=== PATIENT | female | born 1950 | race Caucasian/White ===

== ENCOUNTER 2023-12-23 04:57 | Inpatient (IN) ==
--- NOTE | 2023-11-27 12:17 | PAT Medication Instructions ---
Medication Instructions Date of Service November 27, 2023 Home Medications Medication Instructions Recorded gabapentin 300 mg capsule 300 mg PO TID 90 days #270 caps 09/05/23 Wheeled Walker #1 ea 11/06/23 ropinirole 2 mg tablet 4 mg (2 x 2 mg) PO HS #180 tabs 11/19/23 cholecalciferol (vitamin D3) 50 mcg (2,000 unit) tablet 50 mcg PO QAM aspirin 325 mg tablet 325 mg PO QAM lorazepam 1 mg tablet 1 mg PO HS PRN PRN gabapentin 300 mg capsule 300 mg PO TID ropinirole 2 mg tablet 4 mg (2 x 2 mg) PO HS amlodipine 5 mg tablet 5 mg PO BID atorvastatin 40 mg tablet 40 mg PO QPM bupropion HCl 150 mg tablet,12 hr sustained-release 150 mg PO QAM citalopram 10 mg tablet 10 mg PO HS cyanocobalamin (vitamin B-12) 1,000 mcg tablet (Vitamin B-12) 1,000 mcg PO HS lamotrigine 25 mg tablet (Lamictal) 25 mg PO UD magnesium 250 mg tablet 250 mg PO BID methylphenidate HCl 20 mg tablet 20 mg PO BID oxybutynin chloride 15 mg tablet,extended release 24 hr 30 mg PO QAM quetiapine 100 mg tablet 150 mg PO HS ASK your prescriber and surgeon aspirin 325 mg tablet 325 mg PO QAM DO NOT take the morning of surgery cholecalciferol (vitamin D3) 50 mcg (2,000 unit) tablet 50 mcg PO QAM magnesium 250 mg tablet 250 mg PO BID methylphenidate HCl 20 mg tablet 20 mg PO BID oxybutynin chloride 15 mg tablet,extended release 24 hr 30 mg PO QAM Take morning of surgery With a small sip of water, OTHERWISE NOTHING TO EAT OR DRINK AFTER MIDNIGHT: gabapentin 300 mg capsule 300 mg PO TID amlodipine 5 mg tablet 5 mg PO BID bupropion HCl 150 mg tablet,12 hr sustained-release 150 mg PO QAM lamotrigine 25 mg tablet (Lamictal) 25 mg PO UD Take evening before surgery lorazepam 1 mg tablet 1 mg PO HS PRN PRN (if needed) gabapentin 300 mg capsule 300 mg PO TID ropinirole 2 mg tablet 4 mg (2 x 2 mg) PO HS amlodipine 5 mg tablet 5 mg PO BID atorvastatin 40 mg tablet 40 mg PO QPM citalopram 10 mg tablet 10 mg PO HS cyanocobalamin (vitamin B-12) 1,000 mcg tablet (Vitamin B-12) 1,000 mcg PO HS lamotrigine 25 mg tablet (Lamictal) 25 mg PO UD magnesium 250 mg tablet 250 mg PO BID methylphenidate HCl 20 mg tablet 20 mg PO BID quetiapine 100 mg tablet 150 mg PO HS Other Notes If you have any questions please call us at [phone] or [phone] or [phone] or [phone]
--- NOTE | 2023-12-01 09:53 | Anesthesiology Consultation ---
Date of Service December 01, 2023 Assessment & Plan (1) Encounter for pre-operative examination: - Infectious disease screening: Per assessment on 12/01/23: No known infectious disease contacts or current infectious disease symptoms. No noted recent Covid positive test result. - Hx anesthesia issues: Had neuraxial anesthesia with initial c/s in 1978 > developed significant spinal headache. No similar issues with subsequent c/s 1984. - Outpatient joint assessment: Pt currently scheduled for inpatient pathway. Case reviewed with Dr. Prieto. If surgeon requests review for outpatient joint pathway, patient is an acceptable candidate for outpatient joint program from anesthesia standpoint pending surgeon's office assessment that patient is motivated, has good support and completes [facility] preop requirements. - Family hx of Malignant Hyperthermia: Nephew (at age 3, 35 years ago, [facility] [place] - high fever 105 during surgery instantly > Patient has never had similar personal issues anesthesia but unsure if she was treated with MH precautions (no previous [facility] anesthesia records available, no recent surgeries/anesthesia in approximately 20 years per patient). OR aware to use MH precautions Chart Review Chart Review: Acceptable Risk for Surgery and Patient seen in Pre Admission Testing Teaching & Discussion Pre-Anesthesia Teaching/Discussion Notes: Instructed NPO after midnight before surgery,except medications with 15 cc of water. Medication instructions provided according to the PAT guidelines. History Surgery Operation Date: 12/23/23 07:00 Proposed Procedures p Right Total Hip Arthroplasty - Eloy Sutton MD Height/Weight Height: 5 ft 5 in Weight: 106.7 kg Allergies Allergy/AdvReac Type Severity Reaction Status Date / Time zolpidem [From Ambien] Allergy Severe sleep Verified 11/26/23 10:15 walking Medications Home Medications Medication Instructions Recorded Confirmed Last Taken cholecalciferol (vitamin D3) 50 50 mcg PO QAM 06/05/21 11/26/23 Unknown mcg (2,000 unit) tablet aspirin 325 mg tablet 325 mg PO QAM 12/04/21 11/26/23 Unknown lorazepam 1 mg tablet 1 mg PO HS PRN PRN 12/25/22 11/26/23 Unknown gabapentin 300 mg capsule 300 mg PO TID 90 days #270 caps 09/05/23 11/26/23 Unknown Wheeled Walker #1 ea 11/06/23 11/06/23 Unknown ropinirole 2 mg tablet 4 mg (2 x 2 mg) PO HS #180 tabs 11/19/23 11/26/23 Unknown amlodipine 5 mg tablet 5 mg PO BID 11/26/23 11/26/23 Unknown atorvastatin 40 mg tablet 40 mg PO QPM 11/26/23 11/26/23 Unknown bupropion HCl 150 mg tablet,12 hr 150 mg PO QAM 11/26/23 11/26/23 Unknown sustained-release citalopram 10 mg tablet 10 mg PO HS 11/26/23 11/26/23 Unknown cyanocobalamin (vitamin B-12) 1,000 mcg PO HS 11/26/23 11/26/23 Unknown 1,000 mcg tablet (Vitamin B-12) lamotrigine 25 mg tablet (Lamictal) 25 mg PO UD 11/26/23 11/26/23 Unknown magnesium 250 mg tablet 250 mg PO BID 11/26/23 11/26/23 Unknown methylphenidate HCl 20 mg tablet 20 mg PO BID 11/26/23 11/26/23 Unknown oxybutynin chloride 15 mg 30 mg PO QAM 11/26/23 11/26/23 Unknown tablet,extended release 24 hr quetiapine 100 mg tablet 150 mg PO HS 11/26/23 11/26/23 Unknown Past Medical History Medical History Arthritis Depression Facet arthropathy, lumbosacral Fatigue Herniation of intervertebral disc of lumbosacral region Right L5-S1 History of seizures x2 (most recent 3+ years ago) Follows Dr. Jose Elias Dumont Hypercholesteremia Hypertension Lumbar spondylosis Lumbosacral radiculopathy Pinched thoracic nerve root Exercise / Class Metabolic Activity III < 4 Walking/Shop/Light housework Past Family History Family History Father Dementia Heart disease Myocardial infarction Parkinson disease Mother Breast cancer Lung cancer spread to lungs Hypertension Sister Anxiety Depression Daughter Anxiety Depression Grandmother (Maternal) Stroke Family/Other Family history of malignant hyperthermia Denies family history of Ovarian cancer Prostate cancer Diabetes Kidney disease Colorectal cancer Past Surgical History Surgical History Family history of malignant hyperthermia Nephew (at age 3, 35 years ago, [facility] [place] - high fever 105 during surgery instantly Patient has never had similar personal issues anesthesia but unsure if she was treated with MH precautions (no previous [facility] anesthesia records available, no recent surgeries/anesthesia in approximately 20 years per patient) History of anesthesia reaction Lock jaw x 1 week (30 years ago) Feels "out of it a few days after surgery" with multiple surgeries History of back surgery + 1999s Laminectomy L5-S1 History of section 1978, 1984 Had neuraxial anesthesia with initial c/s in 1978 > developed significant spinal headache. No similar issues with subsequent c/s 1984 History of hysterectomy Age 47 History of lumpectomy of right breast Past Anesthesia History Malignant Hyperthermia (Family hx: Nephew) and Other * Family hx MH: Nephew (at age 3, 35 years ago, [facility] [place] - high fever 105 during surgery instantly > Patient has never had similar personal issues anesthesia but unsure if she was treated with MH precautions (no previous [facility] anesthesia records available, no recent surgeries/anesthesia in approximately 20 years per patient) * Had neuraxial anesthesia with initial c/s in 1978 > developed significant spinal headache. No similar issues with subsequent c/s 1984. * Lock jaw x 1 week (30 years ago) after abscessed tooth extraction * Feels "out of it a few days after surgery" with multiple surgeries/anesthesia Social History Smoking Status: Never smoker Do You Dip or Chew Tobacco: No Hx Alcohol Use: Yes Alcohol type: hard liquor alcohol intake frequency: holidays/special occasions only Hx Substance Use: No substance use type: does not use Review of Systems Patient denies chest pain, shortness of breath, dyspnea on exertion, fever, chills, cough, wheezing, palpitations. Physical Exam Vital Signs BP 130/80 P 82 TEMP 98.3 SP02 94%RA RESP 18 Physical Decreased cervical extension range of motion. Full TMJ range of motion. TMD 3 finger breaths Mallampati Score 1 Dentition: upper/lower partials Lungs: clear throughout to auscultation Cardiac: regular rate and rhythm, no murmurs noted Spine: normal Carotid arteries: negative bruit Extremities: no LE edema Lab Results Anesthesia Preop Results Results Anesthesia Widget: WBC 5.41 K/ul (4.8-10.8) 12/01/23 Hgb 13.7 g/dl (12.0-16.0) 12/01/23 Hct 40.3 % (37.0-47.0) 12/01/23 Plt 314 K/uL (130-400) 12/01/23 Na 139 mmol/L (136-145) 12/01/23 K 3.8 mmol/L (3.5-5.1) 12/01/23 Cl 106 mmol/L (98-107) 12/01/23 CO2 25 mmol/L (21-32) 12/01/23 BUN 22 mg/dl (6-23) 12/01/23 Creat 0.92 mg/dl (0.6-1.2) 12/01/23 Glucose Level 106 mg/dl (70-99(Fasting)) H 12/01/23 PT 10.9 Seconds (9.0-12.0) 12/01/23 PTT 29 Seconds (21-31) 12/01/23 INR 1.0 (0.9-1.1) 12/01/23 Blood Type O Negative 12/01/23 Antibody Screen NEGATIVE 12/01/23 Testing Electrocardiogram Date: 12/01/23 NSR at 75bpm. Diffuse minor NS TWA. Possible old septal infarct. Chest X-Ray Date: 12/01/23 FINDINGS: Cardiomediastinal and hilar silhouettes are within normal limits. No pneumothorax, pleural effusion or airspace consolidation. Bones appear grossly intact. IMPRESSION: No acute process.
--- NOTE | 2023-12-20 07:54 | History & Physical Report ---
Date of Service December 20, 2023 Assessment & Plan (1) Osteoarthritis of right hip: 73-year-old female with history of 2 back surgeries in the past with advanced right hip arthritis has progressed over the past year. She is failed conservative treatment. She like to have her hip fixed. Plan: Viola taken the operating do right total hip replacement. The risks Mente this procedure explained the patient clued but not limited to DVT PE infection neurological injury vascular bleeding palm pain limb range of motion sepsis fairly with symptoms incomplete relief of symptoms excetra. The patient understands and desires to proceed. Informed consent was obtained. She is planned to be discharged home using [facility] home health program. Will plan on DVT prophylaxis including thigh-high teds, SCDs, aspirin twice a day. He apparently has a family history of malignant hypertension thermia will likely do this case first. (2) Osteoarthritis of left knee: History of Present Illness Chief Complaint: . Progressive right hip pain. Primary Care Provider: Chase Piedra MD . The patient is a 73-year-old female who presents for surgical treatment of her right hip. She was initially being seen for some left knee problems but over the past year she developed increased pain discomfort in her right hip. Describes groin and thigh pain rating down to her knee. She has been through therapy for her back as well as her hip. She has had 2 back operations in the past with some persistent pain. Pain is gradually gotten worse. She limps more more as the day goes on. She did have an intra-articular hip joint injection which right some temporary relief. X-rays of showed progressive hip arthritis. She like to have her hip fixed. Allergies Allergy/AdvReac Type Severity Reaction Status Date / Time zolpidem [From Darinel] Allergy Severe sleep Verified 12/17/23 12:00 walking Home Medications Medication Instructions Recorded Confirmed Type cholecalciferol (vitamin D3) 50 50 mcg PO QAM 06/05/21 12/17/23 History mcg (2,000 unit) tablet lorazepam 1 mg tablet 1 mg PO HS PRN PRN 12/25/22 12/17/23 History gabapentin 300 mg capsule 300 mg PO TID 90 days #270 caps 09/05/23 12/17/23 Rx Wheeled Walker #1 ea 11/06/23 12/17/23 Rx amlodipine 5 mg tablet 5 mg PO BID 11/26/23 12/17/23 History atorvastatin 40 mg tablet 40 mg PO QPM 11/26/23 12/17/23 History bupropion HCl 150 mg tablet,12 hr 150 mg PO QAM 11/26/23 12/17/23 History sustained-release cyanocobalamin (vitamin B-12) 1,000 mcg PO HS 11/26/23 12/17/23 History 1,000 mcg tablet (Vitamin B-12) lamotrigine 25 mg tablet (Lamictal) 25 mg PO UD 11/26/23 12/17/23 History magnesium 250 mg tablet 250 mg PO BID 11/26/23 12/17/23 History methylphenidate HCl 20 mg tablet 20 mg PO BID 11/26/23 12/17/23 History quetiapine 100 mg tablet 150 mg PO HS 11/26/23 12/17/23 History escitalopram oxalate 10 mg tablet 10 mg PO DAILY 12/17/23 12/17/23 History lisinopril 10 1 tab PO DAILY #30 tabs 12/17/23 12/17/23 Rx mg-hydrochlorothiazide 12.5 mg tablet oxybutynin chloride 15 mg 15 mg PO BID 12/17/23 12/17/23 History tablet,extended release 24 hr ropinirole 2 mg tablet 2 mg PO HS #90 tabs 12/17/23 12/17/23 Rx Past Med/Surg History Medical History Hypercholesteremia Depression History of seizures x2 (most recent 3+ years ago) Follows Dr. Jose Elias Dumont Facet arthropathy, lumbosacral Lumbosacral radiculopathy Herniation of intervertebral disc of lumbosacral region Right L5-S1 Lumbar spondylosis Pinched thoracic nerve root Arthritis Hypertension Fatigue Surgical History History of anesthesia reaction Lock jaw x 1 week (30 years ago) Feels "out of it a few days after surgery" with multiple surgeries Family history of malignant hyperthermia Nephew (at age 3, 35 years ago, [facility] [place] - high fever 105 during surgery instantly Patient has never had similar personal issues anesthesia but unsure if she was treated with MH precautions (no previous [facility] anesthesia records availabl e, no recent surgeries/anesthesia in approximately 20 years per patient) History of hysterectomy Age 47 History of lumpectomy of right breast History of back surgery + 1999s Laminectomy L5-S1 History of section 1978, 1984 Had neuraxial anesthesia with initial c/s in 1978 > developed significant spinal headache. No similar issues with subsequent c/s 1984 Family History Father Dementia Heart disease Myocardial infarction Parkinson disease Mother Breast cancer Lung cancer spread to lungs Hypertension Sister Anxiety Depression Daughter Anxiety Depression Grandmother (Maternal) Stroke Family/Other Family history of malignant hyperthermia Denies family history of Ovarian cancer Prostate cancer Diabetes Kidney disease Colorectal cancer Social History Smoking Status: Never smoker Tobacco Type: Cigarettes Age Started Using Tobacco: 24; Age Quit Using Tobacco: 44; Second Hand Exposure: No; Do You Dip or Chew Tobacco: No; Hx Alcohol Use: Yes Alcohol type: hard liquor Alcohol Intake Frequency: Monthly or Less Alcohol Intake Frequency Comment: couple times per year Hx Substance Use: No Preferred Language: Montserratian Communication Ability: Effective Visual Impairment: Limited Hearing Ability: Normal Hosted Services Analyst Required: No Beliefs That Will Affect Care: None marital status: Current Living Situation: Spouse current occupational status: retired current occupation: Still works as a receptionist secretary during tax season. How many Children do You have: 2 Feels Safe at Home: Yes Childhood Exposure to Second-Hand Smoke: Yes (Father and ) Diet: regular Diet Comment: Regular diet caffeine: No during the past year weight has: increased > 10 lbs Dental Care, Regularly: No Physical Activity Frequency: Does not Exercise Seatbelt Use: always Sunscreen Use: Yes Do you think of yourself as: straight/heterosexual Gender Identity: Female Assistive Devices: Denture - Upper, Denture - Lower, Glasses and Walker Review of Systems All systems reviewed & are unremarkable except as noted in HPI & below. Physical Exam . Physical examination reveals a pleasant middle-age female. Examination of the right hip and leg reveal patient walks with an antalgic gait. Leg lengths appear pretty clinically equal. She has pain with any type of hip motion. She can internally rotate to neutral at best. This recreates her pain. Negative straight leg raise. She is neurologically intact. Constitutional WD/WN, vitals as above Neck trachea midline, no thyromegaly Respiratory normal respiratory effort, lungs clear to auscultation Cardiovascular RRR, no murmur, no edema Gastrointestinal (Abdomen) normal bowel sounds, soft, nontender, no hepatosplenomegaly Results & Data Results & Data Laboratory Results . Diagnostic Findings . X-rays of the right hip were reviewed. Shows advanced hip arthritis. She has complete loss of her superior joint space. This has progressed significantly over the past year. PG Care Time/CCT Total # of Minutes Spent Total Time Spent with Patient: Total time spent is greater than 50% in coordination of care (as documented) at patient's floor/unit and/or counseling patient: Coding Level of Care Code None Diagnoses Osteoarthritis of right hip M16.11 Osteoarthritis of left knee M17.12
[2023-12-23] MEDS: LR 60ML/HR IV SCH (06:09)
[2023-12-23] MEDS ORDERED: BUPIVACAINE 0.5 % 5 MG/1 ML PF 10ML VIAL ONE (06:10)
[2023-12-23] MEDS: METOCLOPRAMIDE HCL 10 MG TABLET PO SCH (06:12)
[2023-12-23] MEDS: FAMOTIDINE 20 MG TAB PO SCH (06:12)
[2023-12-23] MEDS: CeleBREX 200 MG CAP PO SCH (06:12)
[2023-12-23] MEDS: ACETAMINOPHEN 500 MG TAB PO SCH ×2 (06:12→13:00)
[2023-12-23] MEDS: LR 500ML BOLUS, THEN 15ML/HR IV SCH (06:17)
[2023-12-23] MEDS: dexAMETHasone**PF** 10 MG/ML VIAL IV SCH (06:17)
[2023-12-23] MEDS ORDERED: MIDAZOLAM HCL 1 MG/ML 2ML VIAL ONE ×2 (06:35→07:40)
[2023-12-23] MEDS ORDERED: PROPOFOL IV EMULSION 10 MG/ML 100 ML VIAL IV ONE (06:38)
[2023-12-23] MEDS: TRANEXAMIC ACID 1,000 MG **IV Pre-op IV SCH (06:46)
--- NOTE | 2023-12-23 06:48 | History & Physical Bridge Note ---
Date of Service December 23, 2023 History & Physical Bridge Note I have examined the patient, reviewed the History & Physical and in the interval since the performance of the History & Physical I have noted the following changes of clinical significance: no changes noted
[2023-12-23] MEDS ORDERED: fentaNYL citrate PF 100 MCG/2 ML VIAL IV PRN (06:56)
[2023-12-23] MEDS ORDERED: ePHEDrine sulfate 50 MG/ML AMP IV PRN (06:56)
[2023-12-23] MEDS ORDERED: ONDANSETRON INJ 2 MG/ML 2 ML VIAL IV PRN ×2 (06:56→10:03)
[2023-12-23] MEDS ORDERED: ATROPINE SULFATE 0.1 MG/ML 10ML SYR IV PRN (06:56)
[2023-12-23] MEDS: ceFAZolin 2000MG 2,000 MG/15 ML SYR IV SCH ×2 (06:58→14:34)
[2023-12-23] MEDS ORDERED: PHENYLEPHRINE HCL 10 MG/ML VIAL ONE (07:25)
[2023-12-23] MEDS: BUPIVACAINE/EPINEPHRINE 0.5% MPF 1:200,000 30 ML VIAL ONE (08:12)
[2023-12-23] MEDS ORDERED: ONDANSETRON INJ 2 MG/ML 2 ML VIAL ONE (08:17)
--- NOTE | 2023-12-23 08:51 | Operative Report ---
PG Post Operative Report Pre & Post Diagnosis Operation Date: 12/23/23 07:00 Pre-Op Diagnosis: DJD Hip Right Post-Op Diagnosis: DJD Hip Right I identified the patient and participated in the time-out.: Yes Procedure Operation Date: 12/23/23 07:00 Actual Procedures p Right Total Hip Arthroplasty(Right) - Eloy Sutton MD Surgeon Eloy Sutton MD Pharmaceutical Process Engineer Cale Mckeon PA-C Estimated Blood Loss 200 Findings Consistent with Post-Op Diagnosis Operative findings were advanced right hip arthritis. She had grade 4 [id number] disease of the femoral head and acetabulum. Not much in the way of eburnation or osteophyte formation. She did have a pretty significant hip joint effusion. Large soft tissue envelope. Specimens Right femoral head sent for pathology. Anesthesia Type Spinal MAC Complications none Disposition Accompanied Patient To Recovery: No Indications Patient is a 73-year-old female is had a several year history of increasing right hip pain discomfort that she got markedly worse over the past 6 to 12 months. X-rays show progressive hip arthritis and loss of the joint space. She failed conservative measures. She elected proceed with right total hip arthroplasty. Description of Procedure Operative implants consist of: 1 Biomet G7 size 56 mm acetabular shell. 2. 6.5 acetabular screws 1 at 35 mm length 1 of 25 mm in length. 3. Elrod hole linoleum mechanic. 4. Highly cross-linked polyethylene liner with a 56 mm outer diameter and 40 mm inner diameter. 5. DePuy Corail size 12 KLA femoral stem. 6. +5/40 mm ceramic articular ball. The patient was taken the operating, identified, placed on the operating table in the supine position. All contact areas were appropriately padded. IV antibiotics tried by anesthesia team. Spinal anesthetic and been implemented holding area. A Meier catheter was placed in sterile fashion. The patient was then placed in the left lateral decubitus position. An axillary roll was placed. Distal Birkett position was used for positioning. The right hip and leg were then prepped and draped in usual sterile fashion. A posterolateral approach to the right hip was then performed to a curvilinear incision centered over the greater trochanter. Sharp dissection was carried through subcutaneous tissue down of the IT band gluteal fascia. The IT band gluteal fascia was sized longitudinally in line with skin incision. The underlying greater bursa was excised. The piriformis and external rotators along with the posterior hip joint capsule were then released from the posterior aspect the hip as a single layer. Hip was internally rotated and dislocated. Femoral neck osteotomy cut was made with Final Cut about 15 mm above the lesser trochanter. Femoral head was removed and sent for pathology. The femur was retracted anteriorly. Attention drawn the acetabulum. The acetabular labrum was excised. The pulmonary fat was excised. Sequential reaming the acetabular was then performed again with size 45 and progressing up to 55. I did ream a little bit with a 56 reamer and then a 56 mm G7 acetabular shell was then placed about 40 degrees lateral opening and 20 degrees of anteversion. It was fixed with two 6.5 screws. A trial liner was placed. Attention drawn the femur. The proximal femur in standard with a [employer] cutter followed by canal finder. We then broached beginning with a size 8 and progressing up to 11. I then trialed the hip and the +5 articular ball provide full stability and appropriate leg length and soft tissue tension. However the stem was still just a little bit rotationally unstable so I did broached up to a size 12. We trialed this again and of the hip was once again stable. The implant was stable. We elect to place these implants. All trial implants were removed. An apex hole linoleum mechanic was placed. A highly cross-linked polyethylene liner was placed. I did elect to place a 40 mm head to maximize her stability due to her previous 2 spine surgeries. A DePuy KLA size 12 femoral stem was impacted in position. We had to leave this about a millimeter or 2 prior to the calcar cut. A +5/40 mm ceramic articular ball was placed. Hip was located and once again found to be stable. Attention drawn toward closing. The wound was irrigated coconuts pulsatile lavage solution. I did inject locally with 60 cc of half percent Marcaine with epinephrine. Posterior capsule and external rotators were then repaired through drill holes in the posterior trochanter with #2 Tycron suture. The IT band gluteal fascia were then closed in a running fashion with #1 PDS suture. The subcutaneous tissue was then closed with 2 layers the deep layer #2 Vicryl suture and subcutaneous tissues with 2-0 Dexon suture in a buried interrupted fashion. The skin was closed with skin betty. A Prevena VAC dressing was applied due to the very thick soft tissue envelope. The patient was then transferred to the recovery room in stable condition. Patient tolerated procedure well and there were no complications. Cale Mckeon, my physician assistant associate full professor, was present for the entire procedure. His assistance was essential and required for appropriate patient positioning, prepping and draping, surgical exposure, performing the technical details of the operation, placement the implants, closure of the wound, and placement of the sterile bandage. I attest to the content of the Intraoperative Record and any orders documented therein. Any exceptions are noted below.
[2023-12-23] MEDS ORDERED: NON-FORMULARY MEDICATION (Magnesium 250 mg Tablet) PO SCH (10:03)
[2023-12-23] MEDS ORDERED: NALOXONE HCL 0.4 MG/1 ML VIAL/CARP IV PRN (10:03)
[2023-12-23] MEDS ORDERED: HYDROmorphone INJ 0.5 MG/0.5 ML SYR IV PRN (10:03)
[2023-12-23] MEDS ORDERED: METOCLOPRAMIDE HCL INJ 5 MG/ML 2 ML VIAL IV PRN (10:03)
[2023-12-23] MEDS ORDERED: bisacodyL 10 MG SUPP PR PRN (10:03)
[2023-12-23] MEDS ORDERED: ALUMINUM/MAGNESIUM SUSP 30 ML UDC PO PRN (10:03)
[2023-12-23] MEDS ORDERED: MAGNESIUM HYDROXIDE SUSP 30 ML UDC PO PRN (10:03)
[2023-12-23] MEDS: ORTHO JOINT ANESTHETIC ONE (10:12)
[2023-12-23] MEDS: oxyCODONE HCL IR 5 MG TAB (IMMEDIATE RELEASE) PO PRN (10:43)
[2023-12-23] MEDS: SODIUM CHLORIDE 0.9% 1,000 ML IV SCH (10:56)
[2023-12-23] MEDS: lamoTRIgine 25 MG TAB PO SCH ×2 (10:57→17:01)
[2023-12-23] MEDS: amLODIPine BESYLATE 5 MG TAB PO SCH (10:58)
[2023-12-23] MEDS: GABAPENTIN 300 MG CAP PO SCH (10:58)
[2023-12-23] MEDS: DOCUSATE SODIUM 100 MG CAP PO SCH (10:58)
[2023-12-23] MEDS: MULTIVITAMIN TAB PO SCH (10:58)
[2023-12-23] MEDS: ESCITALOPRAM OXALATE 10 MG TAB PO SCH (10:58)
[2023-12-23] MEDS: buPROPion SR 150 MG TABCR PO SCH (10:58)
[2023-12-23] MEDS: CHOLECALCIFEROL 25 MCG (1000 UNITS) TAB PO SCH (10:59)
[2023-12-23] MEDS: KETOROLAC TROMETHAMINE 15 MG/ML VIAL IV SCH (10:59)
[2023-12-23] MEDS: SENNA 8.6 MG TAB PO SCH ×2 (10:59→21:29)
[2023-12-23] MEDS: OXYBUTYNIN CHLORIDE XL 5 MG TABCR PO SCH (10:59)
[2023-12-23] MEDS: LISINOPRIL/HCTZ 10/12.5MG TAB PO SCH (10:59)
[2023-12-23] MEDS: METHYLPHENIDATE HCL 10 MG TABLET PO SCH (11:00)
[2023-12-23] MEDS: ASPIRIN 81 MG ECTAB PO SCH (11:48)
--- NOTE | 2023-12-23 12:37 | XRay Report ---
SINGLE VIEW PELVIS; SINGLE VIEW RIGHT HIP CLINICAL HISTORY: Postoperative examination. FINDINGS: An AP portable view of the hips and pelvis with a crosstable lateral portable view of the r ight hip are compared to study dated 11/06/2023. A bipolar right hip arthroplasty is in near-anatomic a lignment. 2 cortical lag screws transfix the acetabular cup. No acute fracture is identified. There a re expected postoperative changes overlying the right hip including skin clips, subcutaneous gas, and soft tissue swelling. A Meier catheter is in place. Mild arthritic change is noted in the left hip. IMPRESSION: Expected postoperative findings status post right hip arthroplasty. No acute fracture is seen. ACT 112: Negative or not required by law. Electronically signed by: Regis John M.D. 12/23/2023 12:36 PM
[2023-12-23] MEDS: TRANEXAMIC ACID / 0.7% NACL 1,000 MG/100 ML BAG IV SCH (14:38)
--- NOTE | 2023-12-23 15:34 | Anesthesiology Progress Note ---
Date of Service December 23, 2023 Anesthesia Post Procedure Vital Signs Vital Signs: Temp Pulse Pulse Resp BP Pulse Ox O2 Del Method 12/23/23 12:46 36.4 C L 81 16 142/83 H 94 Room Air 12/23/23 11:48 36.5 C 78 17 144/80 H 94 Room Air 12/23/23 10:46 36.4 C L 79 17 158/80 H 96 Room Air 12/23/23 10:15 36.4 C L 76 19 148/78 H 97 Room Air 12/23/23 09:50 36.6 C 76 18 129/75 97 Room Air 12/23/23 09:30 71 16 126/60 94 Room Air 12/23/23 09:15 70 20 125/63 96 Room Air 12/23/23 09:05 36.7 C 76 17 136/87 98 Room Air 12/23/23 08:55 72 16 108/85 97 Room Air 12/23/23 08:45 71 17 107/65 96 Room Air 12/23/23 08:36 36.1 C L 78 18 150/54 H 97 Room Air 12/23/23 05:48 Room Air 12/23/23 05:48 36.5 C 85 20 139/76 96 Room Air Pain Intensity Right Hip: Pain Intensity: 4 Transfer of Care Handoff Completed per policy Notes Mental Status: alert / awake / arousable and participated in evaluation Patient Amnestic to Procedure: Yes Nausea / Vomiting: adequately controlled Pain: adequately controlled Airway Patency, RR, SpO2: stable & adequate BP & HR: stable & adequate Hydration State: stable & adequate Neuraxial Anesthesia: was administered and sensory block is resolving Anesthetic Complications: no major complications apparent and Pt Satisfied with anesthetic care
[2023-12-23] MEDS: rOPINIRole HCL 2 MG TABLET PO SCH (21:13)
[2023-12-23] MEDS: QUEtiapine FUMARATE 25 MG TABLET PO SCH (21:13)
[2023-12-23] MEDS: ATORVASTATIN 40 MG TAB PO SCH (21:13)
[2023-12-23] MEDS: CYANOCOBALAMIN (B-12) 500 MCG TABLET PO SCH (21:14)
[2023-12-24] MEDS: LORazepam 1 MG TAB PO PRN (03:11)
[2023-12-24 06:47] LABS: Basophils # (auto) 0.01 K/uL (0.00-0.20); Basophils % (auto) 0.1 %; Hematocrit (blood only) 33.2 % (37.0-47.0); Hemoglobin 10.8 g/dl (12.0-16.0); Immature Granulocytes # (auto) 0.09 K/uL (0.01-0.20); Immature Granulocytes % (auto) 0.7 %; Lymphocytes # (auto) 0.88 K/uL (1.20-3.40); Lymphocytes % (auto) 7.1 %; Mean Corpuscular Hgb Conc 32.5 g/dL (32.0-36.0); Mean Corpuscular Volume 89.2 fL (80.0-100.0); Mean Platelet Volume 9.2 fL (9.4-12.4); Monocytes # (auto) 1.27 K/uL (0.11-0.59); Monocytes % (auto) 10.3 %; Neutrophils # (auto) 10.09 K/uL (1.40-6.50); Neutrophils % (auto) 81.8 %; Platelet Count 265 K/uL (130-400); RDW Coefficient of Variation 13.4 % (11.5-14.5); RDW Standard Deviation 43.9 fL (36.4-46.3); Red Blood Count 3.72 M/uL (4.20-5.40); White Blood Count 12.34 K/ul (4.8-10.8)
[2023-12-24 07:15] LABS: BUN Creatinine Ratio 37.6 (10-20); Calcium 8.5 mg/dl (8.6-10.3); Creatinine Clr Calc Pharmacy 49.7 ml/min; Est GFR (African American) 50.1 ml/min; Est GFR (Non-African American) 43.2 ml/min; Potassium 4.1 mmol/L (3.5-5.1)
[2023-12-24] MEDS: dexAMETHasone 10 MG in SYRINGE 0 ML IV SCH (08:26)
--- NOTE | 2023-12-24 12:03 | Orthopedic Progress Note ---
Date of Service December 24, 2023 Assessment & Plan (1) Status post right hip replacement: Overall, she is doing quite well today with good pain control to the right hip. She is going to work with physical therapy later this morning work on ambulation and range of motion exercises. She is on aspirin for DVT prophylaxis. She does not feel that she would be comfortable going home at this point. She is interested in going to a rehabilitation hospital upon discharge. Case management is on board. Orthopedically, she is stable for discharge once a bed is available at a rehabilitation center. She will follow-up in [address] Sutton for postoperative management. Chance Dewitt was seen and evaluated this morning resting comfortably no apparent distress. She notes that her pain is well-controlled to the right hip. She has been up and out of bed with no significant issues. She has yet to work with physical therapy this morning. She denies any other concerns today. Review of Systems All systems reviewed & are unremarkable except as noted in HPI & below. Physical Exam . On physical examination of the right hip, dressings are clean, dry, intact. Her leg is out in full extension. She has active plantarflexion dorsiflexion to the right ankle. +2 DP and PT pulses. Less than 2-second capillary refill. Normal sensation. Neurovascular intact. Results & Data Results & Data Laboratory Results . Diagnostic Findings . Postoperative x-rays of the right hip show prosthesis to be anatomical alignment with no signs of fracture complication or loosening. PG Care Time/CCT Total # of Minutes Spent Total Time Spent with Patient: Total time spent is greater than 50% in coordination of care (as documented) at patient's floor/unit and/or counseling patient: Coding Level of Care Code 44008 Post Operative Follow-Up Diagnoses Status post right hip replacement Z96.641
--- NOTE | 2023-12-25 14:30 | Orthopedic Progress Note ---
Date of Service December 25, 2023 Assessment & Plan (1) Status post right hip replacement: Overall, she is doing quite well today with good pain control to the right hip. She should continue working with physical therapy working on ambulation and range of motion exercises. She is on aspirin for DVT prophylaxis. She does not feel that she would be comfortable going home at this point. She is interested in going to a rehabilitation hospital upon discharge. Case management is on board. Orthopedically, she is stable for discharge once a bed is available at a rehabilitation center. She will follow-up in [address] Sutton for postoperative management. Chance Dewitt was seen and evaluated this morning resting comfortably no apparent distress. She notes that her pain is well-controlled to the right hip. She has been up and out of bed with no significant issues. She has worked with physical therapy with no significant issues. She denies any other concerns today. Review of Systems All systems reviewed & are unremarkable except as noted in HPI & below. Physical Exam .On physical examination of the right hip, dressings are clean, dry, intact. Her leg is out in full extension. She has active plantarflexion dorsiflexion to the right ankle. +2 DP and PT pulses. Less than 2-second capillary refill. Normal sensation. Neurovascular intact. Results & Data Results & Data Laboratory Results . Diagnostic Findings . PG Care Time/CCT Total # of Minutes Spent Total Time Spent with Patient: Total time spent is greater than 50% in coordination of care (as documented) at patient's floor/unit and/or counseling patient: Coding Level of Care Code 73862 Post Operative Follow-Up Diagnoses Status post right hip replacement Z96.641
--- NOTE | 2023-12-26 13:47 | Orthopedic Progress Note ---
Date of Service December 26, 2023 Assessment & Plan (1) Status post right hip replacement: Overall, she is doing quite well today with good pain control to the right hip. She should continue working with physical therapy working on ambulation and range of motion exercises. She is on aspirin for DVT prophylaxis. She does not feel that she would be comfortable going home at this point. She is interested in going to a rehabilitation hospital upon discharge. Case management is on board. Orthopedically, she is stable for discharge once a bed is available at a rehabilitation center. She will follow-up in [address] Sutton for postoperative management. Chance Dewitt was seen and evaluated this morning resting comfortably no apparent distress. She notes that her pain is well-controlled to the right hip. She has been up and out of bed with no significant issues. She has worked with physical therapy with no significant issues. She denies any other concerns today. Review of Systems All systems reviewed & are unremarkable except as noted in HPI & below. Physical Exam . On physical examination of the right hip, dressings are clean, dry, intact. Her leg is out in full extension. She has active plantarflexion dorsiflexion to the right ankle. +2 DP and PT pulses. Less than 2-second capillary refill. Normal sensation. Neurovascular intact. Results & Data Results & Data Laboratory Results . Diagnostic Findings . PG Care Time/CCT Total # of Minutes Spent Total Time Spent with Patient: Total time spent is greater than 50% in coordination of care (as documented) at patient's floor/unit and/or counseling patient: Coding Level of Care Code 75918 Post Operative Follow-Up Diagnoses Status post right hip replacement Z96.641
--- NOTE | 2023-12-27 08:11 | Surgery Progress Note ---
Date of Service December 27, 2023 Assessment & Plan (1) Status post right hip replacement: Plan: 73-year-old female postop day 4 from a right hip replacement doing well. Pain is controlled. Hips located. She is neurologically intact. Just waiting for placement. Plan: 1. DVT prophylaxis including thigh-high teds, SCDs, aspirin twice a day. 2. PT/OT. Weight-bear as tolerated. Right total hip protocol. 3. Pain control doing well with current pain regimen. 4. Wound care. She has a Prevena VAC dressing in place. 5. Disposition just waiting for placement. She is okay for discharge anytime rehab facility available and approved. Admission and Anticipated Discharge Date Admission Date: December 26, 2023 Subjective 73-year-old female postop day 4 from a total hip replacement. She is doing pretty well. Really denies any significant hip pain. No chest pain or shortness of breath. Just waiting for placement. Physical Exam Physical Exam: Physical nation is a pleasant middle-age female. Sitting up in bedside chair looks quite comfortable. Examination of the hip reveals the dressing be clean dry and intact. Thigh is soft and supple. Hips located. She is neurologically intact Results & Data Vital Signs (Past 12 Hours) Vital Signs Temp Pulse Resp BP Pulse Ox O2 Del Method 12/26/23 20:34 36.4 C L 72 18 119/76 95 Room Air PG Care Time/CCT Total # of Minutes Spent Total Time Spent with Patient: Total time spent is greater than 50% in coordination of care (as documented) at patient's floor/unit and/or counseling patient: Coding Level of Care Code 43868 Post Operative Follow-Up Diagnoses Status post right hip replacement Z96.641
--- NOTE | 2023-12-28 07:51 | Surgery Progress Note ---
Date of Service December 28, 2023 Assessment & Plan (1) Status post right hip replacement: Plan: 73-year-old female postop day 5 from a right total hip replacement doing well. Just waiting for placement. Hip is located. She is neurologically intact. Plan: 1. DVT prophylaxis including thigh-high teds, SCDs, aspirin twice a day. 2. PT/OT. Weight-bear as tolerated. Right total hip protocol. 3. Pain control. Doing well with current pain regimen. 4. Wound management. Prevena VAC in place. The knee is removed postop day 7. 5. Disposition plan to discharge to a rehab. Just waiting for placement Admission and Anticipated Discharge Date Admission Date: December 26, 2023 Subjective 73-year-old female postop day 6 from a right total hip replacement. She is doing well. Denies any significant pain. Therapy is going to work okay. No chest pain or shortness of breath. Just waiting for acceptance to rehab. Physical Exam Physical Exam: Physical examination is a pleasant middle-aged female. She is sitting in her bedside chair looks comfortable. Examination of the right hip reveals the dressing be clean dry and intact. Thigh is soft and supple. She is neurologically intact Results & Data Vital Signs (Past 12 Hours) Vital Signs Temp Pulse Resp BP Pulse Ox O2 Del Method 12/28/23 07:45 37.0 C 74 16 121/71 96 Room Air PG Care Time/CCT Total # of Minutes Spent Total Time Spent with Patient: Total time spent is greater than 50% in coordination of care (as documented) at patient's floor/unit and/or counseling patient: Coding Level of Care Code None Diagnoses Status post right hip replacement Z96.641
--- NOTE | 2023-12-29 10:40 | Orthopedic Progress Note ---
Date of Service December 29, 2023 Assessment & Plan (1) Status post right hip replacement: Overall, she is doing quite well today with good pain control to the right hip. She should continue working with physical therapy working on ambulation and range of motion exercises. She is on aspirin for DVT prophylaxis. She is interested in going to a rehabilitation hospital upon discharge. Case management is on board. Orthopedically, she is stable for discharge once a bed is available at a rehabilitation center. She does note that she does not have any answers by the afternoon today, she would like to be discharged home with home health. She feels a lot more comfortable after working with physical therapy last couple days. Case management already has referral placed. Discharge order has been placed. She will follow-up in [address] Sutton for postoperative management. We will see if we hear back from [facility] today. Subjective Bennie was seen and evaluated this morning resting comfortably in no apparent distress. She notes that her pain is well-controlled to the right hip. She has been up and out of bed with no significant issues. She has worked with physical therapy with no significant issues. She denies any other concerns today. She is hopeful for information she was accepted to [facility] for rehabilitation. She does note that she would like to go home with home health if she does not get an answer by the afternoon today. Review of Systems All systems reviewed & are unremarkable except as noted in HPI & below. Physical Exam .On physical examination of the right hip, dressings are clean, dry, intact. Her leg is out in full extension. She has active plantarflexion dorsiflexion to the right ankle. +2 DP and PT pulses. Less than 2-second capillary refill. Normal sensation. Neurovascular intact. Results & Data Results & Data Laboratory Results . Diagnostic Findings . PG Care Time/CCT Total # of Minutes Spent Total Time Spent with Patient: Total time spent is greater than 50% in coordination of care (as documented) at patient's floor/unit and/or counseling patient: Coding Level of Care Code 93862 Post Operative Follow-Up Diagnoses Status post right hip replacement Z96.641
--- NOTE | 2023-12-30 12:25 | Discharge Summary ---
Date of Service December 30, 2023 Admission HPI (Per Admitting) . The patient is a 73-year-old female who presents for surgical treatment of her right hip. She was initially being seen for some left knee problems but over the past year she developed increased pain discomfort in her right hip. Describes groin and thigh pain rating down to her knee. She has been through therapy for her back as well as her hip. She has had 2 back operations in the past with some persistent pain. Pain is gradually gotten worse. She limps more more as the day goes on. She did have an intra-articular hip joint injection which right some temporary relief. X-rays of showed progressive hip arthritis. She like to have her hip fixed. Admission Exam (Per Admitting) . Physical examination reveals a pleasant middle-age female. Examination of the right hip and leg reveal patient walks with an antalgic gait. Leg lengths appear pretty clinically equal. She has pain with any type of hip motion. She can internally rotate to neutral at best. This recreates her pain. Negative straight leg raise. She is neurologically intact. Principal Diagnosis Same as "Discharge Diagnosis" noted below under Discharge Instructions. Discharge Exam .On physical examination of the right hip, dressings are clean, dry, intact. Her leg is out in full extension. She has active plantarflexion dorsiflexion to the right ankle. +2 DP and PT pulses. Less than 2-second capillary refill. Normal sensation. Neurovascular intact. Discharge Data Procedures Performed Operation Date: 12/23/23 07:00 Actual Procedures p Right Total Hip Arthroplasty(Right) - Eloy Sutton MD Hospital Course (1) Status post right hip replacement: On December 23, 2023 Renate arrived at [facility] and underwent a right total hip arthroplasty performed by Dr. Sutton with no complications. She had a spinal anesthetic. Postoperatively, she was started on aspirin for DVT prophylaxis and transferred to the general orthopedic floor in stable condition. Her hospital course was uneventful. On postoperative day #1, her vital signs were stable and her pain was well-controlled. She participated well with physical therapy working on ambulation and range of motion exercises. At this point, she did not feel comfortable being discharged home stating she is still not very comfortable on her feet. She did state that she would not have the assistance at home that she would need for her postoperative care. At this point, a referral was sent to [facility]. No significant events occurred in the rest this day. On postoperative day #2 through #5, she continued working with physical therapy on ambulation and range of motion exercises. No significant events occurred. She was still waiting placement at [facility]. On postoperative day #6, her vital signs were stable and her pain was well-controlled. She again participated well with physical therapy on ambulation and range of motion exercises. At this point, she was still awaiting placement at [facility] but decided that she felt more comfortable being discharged home at this point. She noted that she gained more balance and strength during her time here at the hospital and felt comfortable being discharged with home health. Case management updated home health agency. She was then discharged home in stable condition. She will follow-up with Dr. Sutton in 2 weeks for postoperative management. PG Care Time/CCT Total # of Minutes Spent Total Time Spent with Patient: Total time spent is greater than 50% in coordination of care (as documented) at patient's floor/unit and/or counseling patient: Discharge Plan Discharge Items Patient Disposition: Home - Home Health Services Reason For Visit: DJD Hip Right Discharge Diagnosis: Right Hip Replacement Activity: Per Instructions section Activity Comment: Follow/Obey hip precautions at all times. Weightbearing: Full weightbearing Weightbearing Comment: Weight-bear as tolerated obeying hip precautions at all times. Non-emergency contact: Surgeon Call non-emergency contact if: you have any medication questions Follow-up/Referrals: Chase Piedra MD [Primary Care Provider] - Diet: Regular Addtl Attending Provider Instructions: ACTIVITY RECOMMENDATIONS: Physical Therapy: * Aggressive physical therapy is not usually needed. You will learn to take care of yourself safely and walk. * Follow the "Hip Precautions Instructions." * In some cases, the social media content manager at the hospital will arrange to have a therapist come to your house for the first couple of weeks to help you learn these skills. * You need to practice on your own or with the help of a family member as needed. * When you learn these skills, most of the therapy can be done on your own. Home Exercise: * You were shown a series of exercises in the hospital. Do these exercises three to four times each day including the exercises you were shown in physical therapy. Walking: * Get up and walk several times each day. For the first four weeks, try not to stand or walk for more than one hour at a time. If you do stand or walk for more than one hour, you will not hurt anything, but your leg will likely swell. * As you feel comfortable, you may change from the walker or crutches to a cane and then to independent walking. MEDICATIONS: New Medicine: * You will likely be taking one or more of these medicines: 1. Oxycodone - Take, as directed, when you need it, every six hours to control your pain. 2. Aspirin - Thins your blood to lessen the chance of forming a blood clot. * The most common side effects of pain medicine and iron are nausea and constipation. If nausea or constipation is too much of a problem or if you have any questions about your new medicines or doses, call [facility] at [phone]. We will try to help you manage these issues. "VERY IMPORTANT TO READ AND REVIEW" Pain: * The immediate post-operative period after hip replacement surgery is often quite painful. * You are given a prescription for pain medicine. You should take it, as directed, when you need it, especially before physical therapy and before going to bed. Pain that interferes with sleep is very common and can last several months. * You will likely need pain medicine for the first two to four weeks. It will not stop all of the pain. The pain will lessen and as you feel better, you may change to milder pain medicine such as Tylenol. * The most common side effects of pain medicine are nausea and constipation, so don't take more than you need. SPECIAL CARE INSTRUCTIONS: TEDs/Elastic Stockings: * The white elastic stockings help limit swelling and prevent blood clots from forming in your legs. The more you wear them, the more they work. * Wear them for six weeks. Incision Site Care: * Remove dressing postoperative day 7. Keep direct shower pressure off the incision site. * After showering, cover betty with dry gauze and change daily or more frequently if the dressing is getting saturated with drainage. * May completely stop using bandage if wound is dry and no drainage * [place] are removed between 2 and 3 weeks post-op. If your follow-up appointment is made before 2 weeks, please have your appointment re- scheduled. It is too early to remove the betty. Prevention of Infection: * Take antibiotics one hour before any dental cleaning, dental work, urological procedure, gastrointestinal procedure or any invasive surgery in order to prevent your new joint from getting infected. * You may get the antibiotics from the doctor performing the procedure or you may call our office at before and we will call in a prescription to the pharmacy of your choice. Things to Watch For: * Drainage from the incision site that occurs more than one week after your surgery. * Severely increased leg pain or swelling. * Increased redness at the incision site. * Fever above 102 degrees Fahrenheit. * Unusual chest pain or shortness of breath. * Unusual pain or burning with urination. Call [facility] at with any of the above problems or if you have any questions about your medicines or recovery. FOLLOW UP VISIT: Make an appointment to see your doctor for approximately two weeks after surgery for a progress check and staple removal by calling the office at . Pending Studies at Discharge: No Stand-Alone Forms: [facility], Smoking Cessation Medications and DC Order Prescriptions: Continued gabapentin 300 mg capsule 300 mg PO TID 90 Days Qty: 270 2RF cholecalciferol (vitamin D3) 50 mcg (2,000 unit) tablet 50 mcg PO QAM ondansetron 4 mg tablet,disintegrating 4 mg PO Q8 PRN (Reason: nausea) Qty: 20 1RF Rx Instructions: Take as needed for nausea ketorolac 10 mg tablet 10 mg PO Q6 5 Days Qty: 20 0RF Rx Instructions: Take 4 times per day with food for 5 days to lessen pain and swelling. sennosides [Senokot] 8.6 mg tablet 8.6 mg PO BID 14 Days Qty: 28 0RF Rx Instructions: Take two times a day to prevent/treat constipation acetaminophen [Tylenol Extra Strength] 500 mg tablet 1,000 mg PO TID 30 Days Qty: 180 0RF Rx Instructions: Take 3 times per day to lessen pain. aspirin [Alfredo Low Dose Aspirin] 81 mg tablet,delayed release (DR/EC) 81 mg PO BID 45 Days Qty: 90 0RF Rx Instructions: Take to prevent blood clots. oxycodone 5 mg tablet 5 mg PO Q6 PRN (Reason: pain) Qty: 30 0RF Rx Instructions: Take as needed for pain lorazepam 1 mg tablet 1 mg PO HS PRN (Reason: PRN) (DME) Tori Triplett Misc See Rx Instructions .MEDSUPPLY Qty: 1 0RF Rx Instructions: As directed escitalopram oxalate 10 mg tablet 10 mg PO DAILY lisinopril-hydrochlorothiazide 10-12.5 mg tablet 1 tab PO DAILY Qty: 30 2RF ropinirole 2 mg tablet 2 mg PO HS Qty: 90 3RF oxybutynin chloride 15 mg tablet extended release 24hr 15 mg PO BID atorvastatin 40 mg tablet 40 mg PO QPM Rx Instructions: TAKE 1 TABLET EVERY EVENING amlodipine 5 mg tablet 5 mg PO BID Rx Instructions: 1 po BID lamotrigine [Lamictal] 25 mg tablet 25 mg PO UD Rx Instructions: 2 po am 3 po PM; bupropion HCl 150 mg Tablet Sustained-Release 12 Hr 150 mg PO QAM methylphenidate HCl 20 mg Tablet 20 mg PO BID quetiapine 100 mg Tablet 150 mg PO HS cyanocobalamin (vitamin B-12) [Vitamin B-12] 1,000 mcg Tablet 1,000 mcg PO HS magnesium 250 mg Tablet 250 mg PO BID Discontinued tramadol 50 mg tablet 50 - 100 mg PO Q6 PRN (Reason: pain) Qty: 40 0RF Rx Instructions: Take as needed for pain Discharge Orders: Discharge Order (Routine); Ordered 12/29/23 Ordered By: Rishi Yang Admission Data Admit Date/Time: 12/26/23 14:56 Attending Provider: Eloy Sutton Admit Provider: Eloy Sutton Primary Care Provider: Chase Piedra Other Providers: [facility]Home Health; [facility]; [facility] Other Interventions: Discharge Summary Assessment (RN) Last Done: 12/29/23 10:45
== END 2023-12-29 16:20 | disposition home health service (06) | DRG 470 ==
LOC: ASU 04:57 → 3E 04:57